=== PATIENT | female | born 1980 | race Caucasian/White ===

== ENCOUNTER 2024-07-19 06:13 | Day surgery (SDC) | payer OTHER, SELFPAY ==
[2024-07-13 11:29] VITALS: BMI 38.2
[2024-07-19] VITALS (7 sets, daily range): BP systolic 113–133; BP diastolic 76–85; PULSE 73–97; RESP 10–20; TEMP 36.4; O2SAT 92–97; BMI 36.6
--- NOTE | 2024-07-19 | PATH_ITS ---
[facility] Accession Number: [id number] No. of containers..01 Tissue . 01 Material submitted: . fallopian tube - BILATERAL FALLOPIAN TUBES . 01 Diagnosis: BILATERAL FALLOPIAN TUBES, BILATERAL SALPINGECTOMIES: Bilateral fimbriated fallopian tubes with simple benign paratubal cysts. No evidence of neoplasm. [facility] 07/23/2024 1152 Local . 01 Electronically signed: . Darío Carias MD, PhD, Pathologist NPI- [id number] . 01 Gross description: . Received in formalin with two patient identifiers and bilateral fallopian tubes, are two unoriented, fimbriated fallopian tubes, 7.2 x 0.7 cm and 6.3 x 0.9 cm. Both tubes have violaceous, smooth serosa with cysts up to 0.7 cm in greatest dimension filled with clear serous fluid. The lumens are stellate and unremarkable. Section Housekeeper sections ton include one-half of bisected fimbriae and cross sections are submitted as follows: . A1: Longer fallopian tube. A2: Totz fallopian tube. ([id number]) /MRV 07/20/2024 1410 Local . 01 Microscopic: . Complete cross-sections of fallopian tube are seen from each structure submitted. . 01 Pathologist provided ICD-10: Z30.2 . 01 CPT . 270181 Specimen Comment: A courtesy copy of this report has been sent to [facility]ology Performed at: [address] [id number] MD Maciel Rios MD Phone: [phone]
[2024-07-19] MEDS: ACETAMINOPHEN 325 MG TABLET 975 MG PO (07:02)
[2024-07-19] MEDS: LACTATED RINGERS 1,000 ML 42 ML IV (07:02)
--- NOTE | 2024-07-19 08:17 | PM.PREOP ---
Pre-operative Note Interval Note History & Physical reviewed/Exam performed by Physician: Yes Changes to H&P: No H&P completed within 30 days and has changed as indicated here:: see H&P from 07/09/24
[2024-07-19] MEDS: BUPIVACAINE 0.25% (PF) VIAL 30 ML INJ (09:09)
--- NOTE | 2024-07-19 09:36 | SUR.OPER ---
Lithotomy on padded OR bed, head on pillow, arms secured on padded arm boards at <90 degrees abduction. Legs secured in padded yellow fins stirrups.
--- NOTE | 2024-07-19 09:53 | P.OP_ITS ---
Operative Date/Time/Diagnoses Date of procedure: 07/19/24 Time of procedure: 09:00 Pre-op diagnosis: Undesired future fertility Post-op diagnosis: same Procedure & Clinicians Procedure: Laparoscopic bilateral salpingectomy Same procedure as scheduled: Yes Indications: 43yo G0 with undesired future fertility, counseled and consented for lapar oscopic bilateral salpingectomy for sterilization. Surgeon: Vee Lord Click Yes if Unassisted: Yes Anesthesia Type: General Operative Notes Findings: Normal appearing uterus, bilateral fallopian tubes, and bilateral ovaries. Normal appearing liver edge. Closure Type: primary Specimen(s): other (bilateral fallopian tubes) Applied: catheter (removed at the end of the case) Estimated Blood Loss (mL): 5 Blood products transfused: none Procedure in detail: The risks, benefits, indications and alternatives of the procedure were reviewed with the patient and informed consent was obtained. The pt was taken to the operating room where general anesthesia was obtained without difficulty. The pt was then placed in the low lithotomy position using gel-padded Jono Stirrups. Sequential compression devices were placed bilaterally for VTE prophylaxis. Pt was then prepped and draped in the usual sterile fashion. A Avelar catheter was placed without difficulty. A sponge stick was placed in the vagina as a means to manipulate the uterus. Attention was then turned to the patient?s abdomen where a 5mm skin incision was made in the inferior aspect of the umbilicus after injection of 0.25% marcaine. A 5mm trocar and sleeve were then carefully introduced into the peritoneal cavity under direct visualization at a 90-degree angle while tenting up the abdominal wall. Intra-peritoneal placement was confirmed under direct visualization with the laparoscope with entry pressure <5mmHg. A pneumoperitoneum was obtained with several liters of CO2 gas, maximum pressure of 15mmHg. Upon entry into the peritoneal cavity, structures immediately below the incision were inspected and found to be free of injury. Two additional 5mm trocars were placed in the left lateral aspect of the abdominal wall under direct laparoscopic visualization after injection of 0.25% marcaine at each site. A survey of the pt?s abdomen and pelvis was notable for the above findings. Using an atraumatic grasper, the left fallopian tube was tented up. In a stepwise fashion, the left fallopian tube was removed from the fimbriated end to the cornual end with ultimate excision of the fallopian tube using the Powerseal. The same procedure was performed on the patient?s right side to excise the right fallopian tube. Both fallopian tubes were removed from the abdomen via the lateral port sites. All pedicles were re-examined and noted to be hemostatic. The gas was then turned off and all CO2 was removed from the pt?s abdomen. The trocars were removed. The skin incision sites were reapproximated using 4-0 monocryl and dermabond. The sponge stick was removed from the vagina, and the avelar catheter was removed from the bladder. All instruments were confirmed to be removed from the vagina. At the completion of the case the sponge and needle counts were correct x 2. The patient tolerated the procedure well and was taken to the PACU in stable condition. Complications: none Post-operative Condition: stable Disposition: PACU Plan for aftercare: Discharge to home once meeting discharge criteria.
[2024-07-19] MEDS: OXYCODONE IR 5 MG TABLET PO (10:11)
[2024-07-19] MEDS: BENZOCAINE/MENTHOL 1 LOZ PKT 1 EACH PO (10:30)
== END 2024-07-19 11:00 | disposition home or self-care (01) ==
PROVIDERS: Referring Provider Student in an Organized Health Care Education/Training Program; Visit Provider Student in an Organized Health Care Education/Training Program
PROC: 0UT74ZZ Resection of Bilateral Fallopian Tubes, Percutaneous Endoscopic Approach (ICD-10-PCS; CPT 58661; principal; 2024-07-19 07:45)
DX: Z30.2 Encounter for sterilization (principal); E28.2 Polycystic ovarian syndrome; N83.8 Other noninflammatory disorders of ovary, fallopian tube and broad ligament
CPT/HCPCS: 58661; J0330; J1100; J1885; J2250; J2405; J2704; J3010; J3490